=== PATIENT | female | born 1940 | race Caucasian/White ===

== ENCOUNTER 2022-03-11 11:00 | Outpatient (RCR) | payer MEDICARE, SELFPAY | END 2022-03-25 09:04 | disposition home or self-care (01) | LOC: PT.CARL 11:00 | PROVIDERS: Visit Provider Orthopaedic Surgery | DX: M25.512 Pain in left shoulder (principal); S46.112A Strain of muscle, fascia and tendon of long head of biceps, left arm, initial encounter; M75.52 Bursitis of left shoulder; M75.42 Impingement syndrome of left shoulder | CPT/HCPCS: 97010; 97014; 97033; 97035; 97110; 97140; 97163; 97164; 97530; G0283 ==

== ENCOUNTER 2022-07-22 10:55 | Outpatient (RCR) | payer MEDICARE, SELFPAY | END 2022-08-17 11:10 | disposition home or self-care (01) | LOC: PT.CARL 10:55 | PROVIDERS: Visit Provider Internal Medicine | DX: S86.911A Strain of unspecified muscle(s) and tendon(s) at lower leg level, right leg, initial encounter (principal) | CPT/HCPCS: 97163 ==

== ENCOUNTER 2023-10-18 13:00 | Outpatient (RCR) | payer MEDICARE, SELFPAY | END 2023-11-02 11:41 | disposition home or self-care (01) | LOC: PT 13:00 | PROVIDERS: Visit Provider Orthopaedic Surgery Adult Reconstructive Orthopaedic Surgery | DX: M17.11 Unilateral primary osteoarthritis, right knee (principal); S83.241A Other tear of medial meniscus, current injury, right knee, initial encounter | CPT/HCPCS: 97010; 97014; 97110; 97112; 97116; 97163; 97530; G0283 ==